=== PATIENT | male | born 1940 | race Caucasian/White ===

== ENCOUNTER 2018-02-04 21:07 | Inpatient (IN) | payer MEDICARE, OTHER ==
[2018-02-04] MEDS ORDERED: METOCLOPRAMIDE HCL INJ 10 MG/2 ML VIAL IV ONE (21:40)
[2018-02-04] MEDS ORDERED: SODIUM CHLORIDE 0.9% 1000ML 1,000 ML IVS ONE (21:42)
--- NOTE | 2018-02-04 21:48 | ED.PDOC ---
History of Present Illness - General Chief Complaint: Abdominal Pain Stated Complaint: left lower abd pain, diarrhea, fever Time Seen by Provider: 02/04/18 21:39 Information Source: patient, Vital Signs reviewed, family Exam Limitations: no limitations - History of Present Illness Initial Comments: Mister Yoder presents to the ED with complaint of abdominal pain in the left low er quadrant that has been present for the past 10 hours. The patient states that this is sharp in nature and getting progressively worse. The patient notes that he had a loose bowel movement with this issue but denies vomiting or nausea. The patient also notes a 103 fever at home with this issue. The patient denies urinary issues at this time as well as sick contacts. The patient does endorse a history of diverticulitis in the past. Abdominal Pain Onset Location: LLQ Pain Radiation: no radiation Quality: moderate Timing/Duration: 7-24 hours Improving Factors: rest Worsening Factors: other - movement/palpation Review of Systems - Review of Systems Review of Systems: 02/04/18 21:48 A 10 PT ROS WAS DONE AT THE PATIENT'S BEDSIDE AND IS NEGATIVE EXCEPT NOTED IN THE PATIENT'S HPI. Past Medical History (General) - Patient Medical History Hx Seizures: No Hx Stroke: No Hx Dementia: No Hx Asthma: No Hx of COPD: No Hx Cardiac Disorders: No Hx Congestive Heart Failure: No Hx Pacemaker: No Hx Hypertension: Yes Hx Thyroid Disease: No Hx Diabetes: No Hx Gastroesophageal Reflux: No Hx Renal Disease: No Hx Cancer: Yes - prostate Hx of HIV: No Hx Hepatitis C: No Hx MRSA: No Surgical History: other - Vaccination History Hx Tetanus, Diphtheria Vaccination: No Hx Influenza Vaccination: Yes Hx Pneumococcal Vaccination: Yes Immunizations Up to Date: Yes - Social History Hx Tobacco Use: No Hx Alcohol Use: Yes Family Medical History - Family History Mother Family History: Unknown Physical Exam - Physical Exam General Appearance: Comfortable, Well Groomed, Well Hydrated, Well Nourished Eyes, Ears, Nose, Throat Exam: PERRL/EOMI, normal ENT inspection Neck: supple Respiratory: lungs clear Cardiovascular/Chest: regular rate, rhythm Gastrointestinal/Abdominal: normal bowel sounds, soft, rebound - LLQ, tenderness - LLQ Back Exam: normal inspection, no CVA tenderness Extremity: normal range of motion Neurologic: alert, normal mood/affect, oriented x 3 Skin Exam: normal color Progress - Progress Progress: 02/04/18 21:50 ABDOMINAL PAIN, APPENDICITIS, BOWEL OBSTRUCTION, BOWEL PERFORATION, RENAL STONE, URETERAL STONE, BILIARY COLIC, CHOLECYSTITIS, HEPATITIS, PANCREATITIS, IRRITABLE BOWEL SYNDROME, URINARY TRACT INFECTION, PYELONEPHRITIS, GASTROESOPHAGEAL REFLUX DISEASE, GASTROENTERITIS, PEPTIC ULCER DISEASE, GASTRITIS, ABDOMINAL AORTIC ANEURYSM, ISCHEMIC BOWEL, DIVERTICULITIS, ACUTE MYOCARDIAL INFARCTION, CONSTIPATION, INCARCERATED HERNIA, DIARRHEA. PT PRESENTATION APPEARS TO BE AN ACUTE EXACERBATION OF ABD PAIN. APPENDECITIS UNLIKELY DUE TO PRESENTATION WELL LOCATION OF PAIN. PANCREATITIS ALSO ON THE DDX WHICH WE WILL EVALUATE VIA LIPASE.AMI/DKA UNLIKELY DUE TO HOW THIS PATIENT PRESENTED AND NO COMPLAINTS OF SIGNS/SYMPTOMS OF THESE ISSUES. COLITIS ALSO A CONSIDERATION DUE TO PAIN LOCATION AND PRESENTATION WHICH WE WILL EVALUATE VIA CT SCAN. RENAL/URETERAL STONES ARE ALSO ON THE DIFFERENTIAL DUE TO PRESENTATION WELL LOCATION OF PAIN ON PRESENTATION. PT WILL RECEIVE BASICS LABS AND CT ABD/PEL TO EVALUATE FOR FOREMENTIONED INTRAABDOMINAL PATHOLOGY. 02/04/18 22:21 THE PATIENT IS RESTING COMFORTABLY AT THIS TIME AND TALKING WITH HIS . I WILL CONTINUE TO MONITOR HIM FOR CLINICAL CHANGES. 02/04/18 23:37 THE PATIENT IS DOING WELL AT THIS TIME. WE HAVE DISCUSS THE PATIENT'S LAB AND RADIOLOGICAL RESULTS AT THIS TIME. THE PATIENT IS ADVISED THAT HIS CT AP IS NOTED TO SHOW COLITIS AT THIS TIME WHICH APPEARS INFECTIOUS IN NATURE. THE PATIENT IS ADVISED THAT HE REQUIRES ADMISSION TO THE HOSPITALIST SERVICE FOR THIS ISSUE. THE PATIENT IS IN AGREEMENT W/ THIS PLAN. - EKG/XRAY/CT Comments: EKG- SB, RATE 54BPM, AXIS-NL, NONSPECIFIC ST-CHANGES ARE NOTED. - Consult/PCP Time Called: 23:30 Consult/PCP: Anca JENKINS PIANO BUILDER Consult Reason/Comments: ACCEPTS THE ADMISSION AT THIS TIME. STATES HE HAS DISCUSSED W/ GEN SURGERY. Departure - Departure Clinical Impression: Acute colitis Abdominal pain Qualifiers: Abdominal location: left lower quadrant Qualified Code(s): R10.32 - Left lower quadrant pain Disposition: Admit Patient Decision To Admit - Decistion To Admit Decision to Admit Reason: Admit from ER Decision to Admit Date: 02/04/18 Decision to Admit Time: 23:37
--- NOTE | 2018-02-04 23:03 | CT ---
CLINICAL HISTORY: LLQ PAIN, FEVER COMPARISON: None. TECHNIQUE: CT ABDOMEN WITH IV CONTRAST on 02/04/2018 10:11 PM [employer] This exam was performed according to our departmental dose-optimization program, which includes automated exposure control, adjustment of the mA and/or kV according to patient size and/or use of iterative reconstruction technique. FINDINGS: There is minimal bibasilar atelectasis. The heart is mildly enlarged. Abdomen: There is a tiny hypodense lesion in the right hepatic lobe measuring 1 cm. This is too small to characterize. There is no biliary dilatation. Gallbladder is normal in appearance. There is a small hiatal hernia. The pancreas and spleen are normal in appearance. Adrenal glands are normal. Kidneys are mildly atrophic. Lower pole left renal cysts are present. Abdominal aorta is normal in course and caliber without aneurysm. There is no free air. There is no retroperitoneal adenopathy.Abdominal aorta is moderately calcified without aneurysm. Pelvis: There is moderate to severe diverticulosis of the left colon. There is long segment thickening of much of the descending colon with mild surrounding inflammation. There is mild thickening of the urinary bladder. There is no free fluid. Prostatectomy was performed. Appendix is normal. Skeleton: There are no acute osseous findings. No suspicious bony lesions. IMPRESSION: Long segment infectious or inflammatory colitis involving the descending colon. Electronically signed by: Farhat Reeves MD 02/04/2018 11:02 PM [employer]
--- NOTE | 2018-02-04 23:12 | CT ---
EXAM: CT CHEST WITH IV CONTRAST HISTORY: COUGH,FEVER COMPARISON: None Available TECHNIQUE: Multiple helical axial tomographic images were obtained of the chest following administration of intravenous contrast. Coronal and sagittal reformatted images were obtained. This exam was performed according to our departmental dose-optimization program, which includes automated exposure control, adjustment of the mA and/or kV according to patient size and/or use of iterative reconstruction technique. FINDINGS: Thyroid gland: unremarkable. Axilla: unremarkable. Pulmonary arteries: Central pulmonary arteries appear grossly patent. Aorta: Aortic atherosclerosis is present. No evidence of aortic dissection or aneurysm. Mediastinum: Small hiatal hernia is noted. No adenopathy. Heart: Heart is normal in size. Coronary artery calcifications are present. Lungs/airways: No consolidation. Airways are patent. Mild subsegmental atelectasis in both lower lobes noted. A few small calcified granulomas are present bilaterally. Pleural spaces: No significant pleural effusion. No pneumothorax. Osseous: Left humeral head bone anchors noted. Soft tissues: Unremarkable. Visualized abdomen: Unremarkable. IMPRESSION: No acute intrathoracic abnormality. Electronically signed by: Tung Mccallum MD 02/04/2018 11:11 PM [employer] TEACHER
[2018-02-04] MEDS ORDERED: cefTRIAXone SODIUM 1 GM VIAL IM ONE (23:22)
[2018-02-04] MEDS ORDERED: metroNIDAZOLE IV PREMIX 500MG 500 MG in PREMIX BAG 1 BAG IVPB ONE (23:22)
[2018-02-04] MEDS ORDERED: LIDOCAINE 1% 10 ML VIAL INJ ONE (23:45)
[2018-02-04] MEDS ORDERED: metroNIDAZOLE IV PREMIX 500MG 100 ML IVPB ONE (23:45)
[2018-02-05] MEDS ORDERED: ONDANSETRON INJ 4 MG/2 ML VIAL IV PRN (00:29)
[2018-02-05] MEDS ORDERED: SODIUM CHLORIDE 0.9% (FLUSH) 10 ML SYG IV PRN (00:29)
[2018-02-05] MEDS ORDERED: MORPHINE SULFATE INJ 10 MG/ML VIAL IV PRN (00:29)
--- NOTE | 2018-02-05 00:44 | HP ---
SUPERVISING PHYSICIAN: Zeke Hamilton MD CHIEF COMPLAINT: Left lower abdominal pain with diarrhea and fever. HISTORY OF PRESENT ILLNESS: Mr. Yoder is a 77 year-old male patient who presented to the Emergency Room last night with complaints of abdominal pain associated to the left lower quadrant. He notes that early in the day he was having some issues with constipation and had drank some prune juice after which he started having some diarrhea and then slowly progressed to the abdominal pain to such a painful nature that he presented to the Emergency Room for evaluation. He denied any nausea or vomiting but noted he did have 101 to 103 fever at home and took Tylenol prior to admission to the Emergency Room. He denied any changes in his bowel habits. He had a colonoscopy in the last few years, he reports this has been without any acute pathological findings. He does have a history of diverticulosis and apparently has had some diverticulitis in the past. Initially in the Emergency Room, laboratory showed he had a leukocytosis of 13,000 with hemoglobin 6 and hematocrit 35.0, platelet count showing 268,000 with differential indicating a left shift. Chemistries showed a mild hyponatremia at 132 on sodium with potassium 3.8. BUN 24, creatinine 1.21. Lactic acid 1.5, calcium 8.3, magnesium 1.6. Liver functions all within normal limits. Troponin less than 0.02 and C-reactive protein elevated at 2.2. Lipase was normal at 21. Sed rate was pending. Urinalysis showed a small amount of bilirubin, otherwise within normal limits. Microbiology: Blood cultures pending. Radiology: He had a CT of the chest and abdomen with contrast and per radiology interpretation of the abdomen, there was note of a long segment of infectious and inflammatory colitis involving the colon. CT of the chest showed no intrathoracic abnormalities per radiology interpretation. His pain on admission was reportedly 8/10. He was given morphine for pain control and started on IV fluids as well as antibiotics to initially include Rocephin and Flagyl. Given the patient's advanced age and findings on CT indicate a possible infective colitis. The patient is now going to be admitted for continuation of treatment and evaluation. He is admitted in stable condition. PAST MEDICAL HISTORY: 1. Hypertension. 2. History of prostate cancer with prostatectomy in 2000. PAST SURGICAL HISTORY: 1. Prostatectomy in 2000. 2. Left shoulder scope. 3. Colonoscopy in 2015 with reportedly no acute findings. CURRENT MEDICATIONS: 1. Clonidine patch 0.3 mg every 7 days. 2. Probiotic 1 daily. 3. Visceral tablet 2000 mg daily. 4. Vitamin D3 15,000 units daily. 5. Valacyclovir 1 gram p.o. as needed. 6. Multiple vitamin 1 tablet daily. 7. Zolpidem Tartrate 2.5 mg as needed. 8. Lipitor 20 mg at bedtime. 9. Pantoprazole 40 mg daily. 10. Aspirin low-dose 81 mg at bedtime. 11. Hydrochlorothiazide 25 mg daily. 12. Losartan potassium 100 mg daily. ALLERGIES: No known drug allergies. FAMILY HISTORY: Father at early age with no significant history known. Mother at age 90 from breast cancer and also had a history of dementia. He has 2 younger siblings, one has dementia and one has hypertension. He has one child, a daughter, who is healthy. 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 He is and lives in [place], currently visiting family over there holidays. He has not smoked in 40 years. He notes he drinks a glass of wine on rare occasions but does not use any illicit drugs. REVIEW OF SYSTEMS: CONSTITUTIONAL: Positive for fever with a subjective fever up to 103, general malaise, chills but no unintentional weight changes. HEENT: Negative for earache, sore throat, nasal congestion, headaches. RESPIRATORY: Negative for any shortness of breath, exertional dyspnea, orthopnea or wheezing or coughing. CARDIOVASCULAR: Negative for chest pain, palpitations or syncopal episodes. Positive for difficult to control hypertension. Negative for peripheral edema. GASTROINTESTINAL: Positive for left quadrant abdominal pain. Negative for any hematochezia or bright red blood. Positive for diarrhea and constipation as noted in history of present illness. GENITOURINARY: History of prostate cancer but negative for dysuria, hematuria, polyuria. NEUROLOGIC: Negative for headaches, seizure activities or syncopal episodes or neurological deficits. PHYSICAL EXAMINATION: VITAL SIGNS: Temperature 98.4, pulse 60, blood pressure 107/50, respirations 18, saturation 97% on room air. At time of admission to the hospital, the patient was showing a heart rate of 58, afebrile at 98.6 with blood pressure 164/54, saturation 96% on room air. Admission weight 92.4 kg. GENERAL: The patient appears to be comfortable in no acute distress, well- nourished, well-hydrated. HEENT: Tympanic membranes clear bilaterally. Oropharynx pink and moist without any lesions. NECK: Supple, non-tender with full range of motion. No jugular venous distention noted. CHEST: Lungs clear to auscultation without any rhonchi, rales, or wheezes. CARDIOVASCULAR: Regular rate and rhythm without appreciable murmurs, rubs, or gallops. ABDOMEN: Soft, nondistended with tenderness to palpation to the left upper and lower quadrant with some rebound tenderness. No peritoneal signs. Bowel sounds are positive. EXTREMITIES: No cyanosis, clubbing, or edema. NEUROLOGIC: Cranial nerves II through XII are grossly intact. Facial features are symmetrical. Extraocular movements within normal limits. There is no noted nystagmus. RECTAL: Exam deferred. LABORATORY: White count showing leukocytosis of 13,300 with hemoglobin 11.6 and hematocrit 35.0. Platelet count 258,000 with a left shift. Chemistries indicated hyponatremia with sodium 132, potassium 3.8, anion gap 11.8 with BUN 24, creatinine 1.21, magnesium low at 1.6, calcium 8.3. Lactic acid 1.5, liver functions showed to be within normal limits. C-reactive protein high at 2.2. Sed rate pending. Troponin less than 0.02l, lipase 21. Urinalysis shows small amount of bilirubin, otherwise within normal limits. MICROBIOLOGY: Blood cultures are pending. Stool culture pending. Leukoferon on stools pending. Occult blood on stools pending. C difficult pending. RADIOLOGY: CT of the chest per radiology interpretation was without any acute findings. CT of abdominal with contrast per radiology interpretation showed a long segment infectious or inflammatory colitis involving the descending colon. ASSESSMENT: 1. Acute abdominal pain with probable infective colitis with CT studies indicating inflammatory changes, colitis involving the majority of the descending colon with patient having a history of diverticulosis. 2. Hypertension. 3. History of prostate cancer with a previous prostatectomy in 2000. 4. Electrolyte imbalance to include hyponatremia, probably due to chronic Hydrochlorothiazide usage and also a mild hypomagnesemia probably due to acute diarrhea. 5. Normocytic normochromic anemia with current acute findings of colitis, awaiting occult blood. 6. Leukocytosis secondary to descending colitis with a left shift but no bands. 7. Mild dehydration secondary to recent diarrhea. PLAN: The patient is going to be admitted to the medical/surgical floor for further treatment of acute colitis. He will remain n.p.o. except for oral medications. He will be started on Flagyl and Levaquin antibiotic coverage. He will need prophylaxis as per protocol. We will go ahead and replace magnesium with 2 grams IV and recheck a magnesium in the morning. Will resume his medications as appropriate and probably hold his Hydrochlorothiazide until he can start eating. Until then, we will provide fluid replacement with normal saline with 20 of potassium at 125 an hour. We will closely monitor his I & O's. We will provide him with pain management with morphine as needed and antiemetics. Will anticipate his length of stay to be at least 2 to [address] Kinsey prior to admission. He will see the patient in the morning and will also plan to repeat labs, CBC, BMP, magnesium and an abdominal series. Until the patient can be transitioned to outpatient management, we will continue to monitor and treat as needed. #[id number] [facility]
[2018-02-05] MEDS ORDERED: ZOLPIDEM TARTRATE 5 MG TAB PO PRN (01:30)
[2018-02-05] MEDS: levoFLOXacin 750MG IV 750 MG in PREMIX BAG 1 BAG IVPB SCH (02:08)
[2018-02-05] MEDS: IV SET AND CAP CHANGE INJ INJ SCH (02:09)
[2018-02-05] MEDS: KCL 20 MEQ/NS 1,000 ML IVS PRN ×2 (02:09→14:03)
[2018-02-05] MEDS ORDERED: MAGNESIUM SULFATE PREMIX 2GM 2 GM in PREMIX BAG 1 BAG IVPB ONE (02:10)
[2018-02-05] MEDS ORDERED: MAGNESIUM SULFATE PREMIX 2GM 50 ML IVPB ONE (03:17)
[2018-02-05] MEDS: PANTOPRAZOLE SODIUM IV 40 MG VIAL IV SCH (05:49)
[2018-02-05] MEDS: LOSARTAN POTASSIUM 100 MG TAB PO SCH (05:49)
--- NOTE | 2018-02-05 07:19 | RAD ---
EXAM: Abdomen Flat Upright CLINICAL HISTORY: acute colitis COMPARISON STUDY: CT abdomen pelvis February 04, 2018 TECHNICAL: Flat and upright images of the abdomen FINDINGS: The small bowel loops are dilated with air-fluid levels. There are some colonic gas. There is no free air. Prostatectomy clips are seen in the pelvis. There are multiple sclerotic areas in the pelvis and the left L1 pedicle. IMPRESSION: 1. Dilated loops of small bowel with air-fluid levels. Colitis suggestive ileus. An early or partial small bowel obstruction is possible. 2. 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 Electronically signed by: Danilo Ortiz MD 02/05/2018 7:18 AM [facility]
[2018-02-05] MEDS ORDERED: metroNIDAZOLE IV PREMIX 500MG 100 ML IVPB ONE ×3 (08:55→20:25)
[2018-02-05] MEDS: metroNIDAZOLE IV PREMIX 500MG 500 MG in PREMIX BAG 1 BAG IVPB SCH ×3 (08:59→23:32)
--- NOTE | 2018-02-05 13:50 | CONS ---
DATE OF CONSULTATION: 02/05/18 REFERRING PHYSICIAN: Hospital service HISTORY OF PRESENT ILLNESS: The patient is a 77-year-old male who was admitted last night through the Emergency Room with left lower quadrant abdominal pain, fever and a history of diarrhea. This morning, the patient is relatively comfortable. He says he feels better and has a T-max overnight of 99.4. He has not had any stool since he was admitted. The patient states he had traveled here from [place] and arriving Thursday. He has several grandchildren in the home where he is staying that have had viral illnesses, but no one had like symptoms with him. He is status post two years a colonoscopy. He is known to have diverticular disease, but is uncertain whether he has had diverticulitis in the past. He denies blood per rectum. PAST MEDICAL HISTORY: 1. Hypertension. He was recently hospitalized for that. 2. History of prostate cancer with a prostatectomy. Interestingly, he has had bony islands especially in his pelvic area since at least 2012 that appear to not be bony metastasis and he has a stable PSA. PAST SURGICAL HISTORY: 1. Left shoulder surgery. 2. Prostatectomy. CURRENT MEDICATIONS: 1. Clonidine. 2. Probiotic. 3. Valacyclovir. 4. Zolpidem. 5. Lipitor. 6. Pantoprazole. 7. Low dose aspirin. 8. Hydrochlorothiazide. 9. Losartan. 10. Potassium. ALLERGIES: NO KNOWN DRUG ALLERGIES. FAMILY HISTORY: Positive for breast cancer, dementia and hypertension. 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 He is and lives in [place]. He has not smoked in 40 years. He drinks a glass of wine rarely. He has never used illicit drugs. REVIEW OF SYSTEMS: Unremarkable except as in the history of present illness. He specifically denies chest pain, shortness of breath, coughing or wheezing. He denies problems with voiding or hematuria. He denies headaches, muscle aches. PHYSICAL EXAMINATION: GENERAL: The patient is awake, alert, cooperative, in no acute distress. VITAL SIGNS: The patient is currently afebrile, stable vital signs. HEENT: Sclerae nonicteric. Mucous membranes moist. NECK: Without adenopathy. CHEST: Equal bilateral motion and is clear anteriorly. HEART: Regular rate and rhythm. ABDOMEN: Soft. It is tender in the left lower quadrant without mass. There is some referred tenderness. RECTAL: Deferred. EXTREMITIES: Without cyanosis, clubbing or edema. LABORATORY: White blood cell count 12.5, down from 13.3. Hemoglobin down to 11.2 from 11.6. Platelet count 253,000. Neutrophils are down from 84 to 81. ESR was 35. C-reactive protein 2.2. Potassium 3.6, creatinine 1.18. CT scan was reviewed with Dr. Badillo. He feels it is more consistent with diverticulitis than an inflammatory colitis or infectious colitis. ASSESSMENT: 1. Probably acute diverticulitis. 2. History of prostate cancer. 3. Hypertension including recent admission for problems with his hypertension. PLAN: He is covered with appropriate antibiotics. We will continue these and continue NPO at least until tomorrow morning. We will reevaluate him at that point. He will need some catharsis from above for a large amount of stool identified on the CT scan. #[id number] [facility]
--- NOTE | 2018-02-05 17:25 | PN ---
DATE: 02/05/18 SUPERVISING PHYSICIAN: Zeke Hamilton M.D. SUBJECTIVE: The patient notes that he feels a little bit better but continues to have pain on the left side but not quite as severe as it was at admission. He has not yet had any bowel movements and he has remained afebrile overnight. He has had no nausea or vomiting. OBJECTIVE: VITAL SIGNS: T max 99.5, pulse 60, blood pressure 122/58, respirations 16, satting 93% on room air. I's and O's are well balanced. No bowel movements yet and weight is 92.4 kg. GENERAL: The patient is resting comfortably. Appears to be in no acute distress. He is alert. CHEST: Lungs are clear to auscultation. HEART: Regular rate and rhythm. ABDOMEN: Soft with continued tenderness to palpation to the left upper and lower quadrants. No rebound tenderness. No point tenderness. EXTREMITIES: Without any clubbing or cyanosis. NEUROLOGIC: He is alert and oriented times three. LABORATORY: White count has come down slightly to 12,500 with hemoglobin 11.2, hematocrit 33.7, platelet count 253,000. Differential shows a continued left shift. Sed rate was 35. Chemistries show normal electrolytes now with sodium 135, potassium 3.6, BUN 23, creatinine 1.18, calcium 8.1, magnesium now is up to 2.3. MICROBIOLOGY: Blood cultures remain negative. RADIOLOGY: Repeat abdominal x-ray per radiology interpretation shows dilated loops of small bowel with air-fluid levels. Colitis suggestive ileus. An early partial small bowel obstruction possible. Please see that detail for full reports. Also is noted multiple sclerotic foci from the pelvis and left L1 pedicle which could be blastic metastasis from prostate cancer. ASSESSMENT: 1. Acute abdominal pain, probably acute diverticulitis showing good response to antibiotics to include Levaquin and Flagyl and bowel rest. 2. Electrolyte imbalance, resolved after IV fluids. 3. Hypertension showing to be stable. 4. History of prostate cancer with a previous prostatectomy in 2000. 5. Electrolyte imbalance to include hypomagnesemia, resolved back to baseline after IV replacement. 6. Normocytic normochromic anemia showing to be stable. 7. Leukocytosis secondary to probable acute diverticulitis but showing improvement with therapy. 8. Mild dehydration secondary to diarrhea now improved with fluids. PLAN: Dr. Kinsey has been consulted and has seen the patient today. He agrees with current treatment plan of Levaquin and Flagyl, and keeping bowel rest until at least tomorrow. Will plan to repeat an abdomen and labs in the morning. He will be continued on DVT prophylaxis. He will be provided pain management and antiemetics as needed. Will anticipate at least another 24 to 48 hours of hospitalization while the patient clinically improves. Until he can transition to outpatient management will continue to monitor and treat as needed. #[id number] [facility]
[2018-02-05] MEDS: ASPIRIN (ENTERIC COATED) 81 MG TAB PO SCH (21:24)
[2018-02-05] MEDS: ENOXAPARIN SODIUM 40 MG/0.4 ML SYG SUBCU SCH (21:24)
[2018-02-05] MEDS: ATORVASTATIN 20 MG TAB PO SCH (21:24)
[2018-02-06] MEDS: KCL 20 MEQ/NS 1,000 ML IVS PRN ×2 (01:21→22:47)
[2018-02-06] MEDS: levoFLOXacin 750MG IV 750 MG in PREMIX BAG 1 BAG IVPB SCH (01:35)
[2018-02-06] MEDS: LOSARTAN POTASSIUM 100 MG TAB PO SCH (05:54)
[2018-02-06] MEDS: PANTOPRAZOLE SODIUM IV 40 MG VIAL IV SCH (05:54)
--- NOTE | 2018-02-06 08:14 | RAD ---
PROCEDURE: Abdomen Flat Upright Clinical History: diverticulitis Indication: Same as above Comparison: 02/05/2018 Technique: Three views of the abdomen and pelvis were done. Findings: There is no gross evidence of free air in the abdomen or the pelvis . There is improving caliber of the dilated small bowel loops, suggestive of improving small bowel ileus, with residual few air-fluid levels seen in the small bowel loops. Normal caliber large bowel loops are again noted Surgical pat are again seen in the pelvic region. Impression: There is improving caliber of the dilated small bowel loops, suggestive of improving small bowel ileus, with residual few air-fluid levels seen in the small bowel loops. Location of Interpretation: [id number] Electronically signed by: Zac Groves MD 02/06/2018 8:13 AM [facility] Workstation: [id number]
[2018-02-06] MEDS ORDERED: metroNIDAZOLE IV PREMIX 500MG 100 ML IVPB ONE ×3 (09:01→19:38)
[2018-02-06] MEDS: metroNIDAZOLE IV PREMIX 500MG 500 MG in PREMIX BAG 1 BAG IVPB SCH ×3 (09:09→23:35)
[2018-02-06] MEDS ORDERED: MAGNESIUM HYDROXIDE 30 ML UD PO ONE (12:18)
[2018-02-06] MEDS ORDERED: BISACODYL SUPPOSITORY 10 MG PR ONE (12:18)
[2018-02-06] MEDS: POLYETHYLENE GLYCOL 3350 17 GM PCKT PO SCH (12:51)
[2018-02-06] MEDS ORDERED: SODIUM CHLORIDE 0.65% NASAL SPRAY 45 ML BTTL BNAS PRN (15:31)
[2018-02-06] MEDS: ENOXAPARIN SODIUM 40 MG/0.4 ML SYG SUBCU SCH (20:22)
[2018-02-06] MEDS: ASPIRIN (ENTERIC COATED) 81 MG TAB PO SCH (20:22)
[2018-02-06] MEDS: ATORVASTATIN 20 MG TAB PO SCH (20:22)
[2018-02-06] MEDS: TEMAZEPAM 15 MG CAP PO PRN (21:17)
--- NOTE | 2018-02-06 21:42 | PN ---
DATE: 02/06/18 SUPERVISING PHYSICIAN: Zeke Hamilton M.D. SUBJECTIVE: The patient feels a little bit better today. He said he is not quite as tender on the left side. He noted that he had not had a bowel movement and he has had no nausea. He has been tolerating ice chips and he has been trying to ambulate. He has remained afebrile. OBJECTIVE: VITAL SIGNS: temperature 97.7, pulse 54, blood pressure 146/56, respirations 18, satting 98% on room air. I's and O's show a positive balance of 1550 with 1300 in, 1650 out. Weight is 92.9 kg. GENERAL: The patient is resting comfortably and in no acute distress. He is alert. CHEST: Lungs are clear to auscultation. HEART: Regular rate and rhythm. ABDOMEN: Soft with continued tenderness to palpation in the left upper and lower quadrants with no rebound tenderness today. No point tenderness. EXTREMITIES: Without any clubbing. NEUROLOGIC: He is alert and oriented times three. LABORATORY: White count today is normalized to 9.9 with hemoglobin 11.2, hematocrit 33.7, platelet count at 240,000. Differential shows a resolving left shift. Chemistries show normal electrolytes with BUN 21, creatinine 1.09. C reactive protein is elevated up to 11.4 today. Sed rate is now down to 25. He had a stool occult blood that was negative. MICROBIOLOGY: Stool leukocytes were positive. Stool culture is pending. Clostridium Difficile toxin A and B were negative. Blood cultures remain negative. RADIOLOGY: Repeat abdominal series this morning per radiology interpretation shows improving caliber of the dilated small bowel loops suggestive of improving small bowel ileus with residual few air-fluid levels seen in small bowel loops. ASSESSMENT: 1. Acute abdominal pain on admission probably due to acute diverticulitis showing some improvement and response to antibiotics to include Levaquin and Flagyl and bowel rest. 2. Electrolyte imbalance that included hypomagnesemia, resolved with IV replacement. 3. Hypertension showing some episodes of uncontrolled hypertension requiring p.r.n. Hydralazine with the patient having a history of erratic blood pressures. 4. History of prostate cancer with a previous prostatectomy in 2000. 5. Normocytic normochromic anemia showing to be stable. 6. Leukocytosis probably due to acute diverticulitis, improving with therapy. 8. Mild dehydration, resolved with fluids. PLAN: I have discussed the case with Dr. Kinsey and he wants to give the completion of suppository Dulcolax today with some MiraLAX and Milk of Magnesia, and start him on clear liquids. Will plan to repeat labs in the morning and hold off on x-rays as he is showing improvement. The patient is encouraged to ambulate, which he has been doing well. Until the patient can transition to outpatient management will continue to monitor and treat as needed. #[id number] [facility]
[2018-02-07] MEDS: levoFLOXacin 750MG IV 750 MG in PREMIX BAG 1 BAG IVPB SCH (01:32)
[2018-02-07] MEDS ORDERED: cloNIDine PATCH 0.1MG/24HR 0.1 MG PATCH TD ONE (05:10)
[2018-02-07] MEDS ORDERED: cloNIDine PATCH 0.2 MG/24HR 0.2 MG PATCH TD ONE (05:10)
[2018-02-07] MEDS ORDERED: metroNIDAZOLE IV PREMIX 500MG 0 ML IVPB ONE (05:11)
[2018-02-07] MEDS: LOSARTAN POTASSIUM 100 MG TAB PO SCH (06:05)
[2018-02-07] MEDS: PANTOPRAZOLE SODIUM IV 40 MG VIAL IV SCH (06:05)
[2018-02-07] MEDS ORDERED: metroNIDAZOLE IV PREMIX 500MG 100 ML IVPB ONE (07:55)
[2018-02-07] MEDS ORDERED: REMOVE OLD PATCH TOP SCH (08:00)
[2018-02-07] MEDS ORDERED: cloNIDine PATCH 0.2 MG/24HR 0.2 MG PATCH TD SCH (08:00)
[2018-02-07] MEDS ORDERED: cloNIDine PATCH 0.1MG/24HR 0.1 MG PATCH TD SCH (08:00)
[2018-02-07] MEDS: metroNIDAZOLE IV PREMIX 500MG 500 MG in PREMIX BAG 1 BAG IVPB SCH (08:42)
[2018-02-07] MEDS: POLYETHYLENE GLYCOL 3350 17 GM PCKT PO SCH (09:19)
[2018-02-07] MEDS ORDERED: MAGNESIUM HYDROXIDE 30 ML UD PO ONE (11:10)
[2018-02-07] MEDS: metroNIDAZOLE 500 MG TAB PO SCH (16:47)
--- NOTE | 2018-02-07 18:27 | PN ---
DATE: 02/07/18 SUPERVISING PHYSICIAN: Zeke Hamilton M.D. SUBJECTIVE: The patient continues to show clinical improvement. He is not as tender today in the abdomen. He has had 1 bowel movement after Dulcolax suppository. He has been tolerating a clear liquid diet. He has been afebrile. 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 OBJECTIVE: VITAL SIGNS: Temperature 98.7, pulse 54, blood pressure 148/67, respirations 18, satting 95% on room air. Weight is 94.3 kg. GENERAL: The patient is resting comfortably. He is alert. CHEST: Clear to auscultation. HEART: Regular rate and rhythm. ABDOMEN: Soft with some tenderness noted to deep palpation to the left side but notably decreased from previous days. EXTREMITIES: Without any clubbing, cyanosis or edema. NEUROLOGIC: He is alert and oriented times three. LABORATORY: White count is 7,400. Hemoglobin and hematocrit are stable at 11.2 and 33.6, platelet count 239,000. Differential now shows to be without a left shift. Chemistries show normal electrolytes with potassium 3.7, BUN 15, creatinine 0.99, glucose 95. He had 1 stool occult blood that was negative. MICROBIOLOGY: Stool culture is pending. Clostridium Difficile A and B was negative. Lactoferrin was positive. Blood cultures remain negative at 48 hours. ASSESSMENT: 1. Acute abdominal pain secondary to acute diverticulitis, improving with antibiotics including Levaquin and Flagyl, and bowel rest. Able to transition to clear liquids. 2. Electrolyte imbalance with hypomagnesemia now at baseline after replacement. 3. Hypertension with episodes of uncontrolled hypertension requiring p.r.n. Hydralazine with the patient having a history of erratic blood pressures. 4. History of prostate cancer with a previous prostatectomy in 2000. 5. Normocytic normochromic anemia showing to be stable. 6. Leukocytosis probably due to diverticulitis, but now back to baseline levels with antibiotic treatment. PLAN: After discussing plan of care today with Dr. Kinsey we are going to decrease the patient's fluids to 80 an hour. Will give additional dose of Milk of Magnesia. Will continue with clear liquids and transition him from parenteral antibiotics to p.o. antibiotics with both Levaquin and Flagyl. Will anticipate that he will be able to be discharged tomorrow if he continues to have bowel movements today. Once discharged he will need close followup with Dr. Kinsey who has stated that he could followup with him. He just needs to call him next week if he is still in town before he goes back to [place]. His diet will be a mechanical soft diet as tolerated and he will need continued coverage with antibiotics with Flagyl and Levaquin. Until he can transition to outpatient management will continue to monitor and treat as needed. #[id number] [facility]
[2018-02-07] MEDS: ASPIRIN (ENTERIC COATED) 81 MG TAB PO SCH (20:17)
[2018-02-07] MEDS: BIFIDOBACTERIUM INFANTIS 4 MG CAP PO SCH (20:17)
[2018-02-07] MEDS: ATORVASTATIN 20 MG TAB PO SCH (20:17)
[2018-02-07] MEDS: ENOXAPARIN SODIUM 40 MG/0.4 ML SYG SUBCU SCH (20:17)
[2018-02-07] MEDS: TEMAZEPAM 15 MG CAP PO PRN (22:25)
[2018-02-08] MEDS: KCL 20 MEQ/NS 1,000 ML IVS PRN (00:13)
[2018-02-08] MEDS: IV SET AND CAP CHANGE INJ INJ SCH (00:18)
[2018-02-08] MEDS: PANTOPRAZOLE SODIUM IV 40 MG VIAL IV SCH (06:09)
[2018-02-08] MEDS: LOSARTAN POTASSIUM 100 MG TAB PO SCH (06:09)
[2018-02-08 06:35] VITALS: TEMP 98.3
[2018-02-08] MEDS: metroNIDAZOLE 500 MG TAB PO SCH ×2 (09:00)
[2018-02-08] MEDS ORDERED: levoFLOXacin 750MG IV 750 MG in PREMIX BAG 1 BAG IVPB SCH (09:00)
[2018-02-08] MEDS ORDERED: hydroCHLOROthiazide 25 MG TAB PO SCH (09:08)
[2018-02-08] MEDS ORDERED: PROBIOTIC PRODUCT PO SCH (09:15)
[2018-02-08] MEDS ORDERED: levoFLOXacin 500 MG TAB ONE (09:27)
[2018-02-08] MEDS ORDERED: levoFLOXacin 500 MG TAB PO ONE (09:44)
[2018-02-08] MEDS: POLYETHYLENE GLYCOL 3350 17 GM PCKT PO SCH (09:45)
[2018-02-08] MEDS: BIFIDOBACTERIUM INFANTIS 4 MG CAP PO SCH (09:45)
[2018-02-08 10:11] VITALS: BP 161/68; O2SAT 96
[2018-02-08] MEDS ORDERED: MAGNESIUM HYDROXIDE 30 ML UD PO ONE (10:47)
--- NOTE | 2018-02-08 20:02 | DS ---
SUPERVISING PHYSICIAN: Zeke Hamilton M.D. DISCHARGE DIAGNOSIS: 1. Acute abdominal pain secondary to acute diverticulitis, improving with antibiotics including Levaquin and Flagyl, and bowel rest. Has transitioned to full liquids and tolerating without problems. 2. Electrolyte imbalance with hypomagnesemia now at baseline after replacement. 3. Hypertension with episodes of uncontrolled hypertension requiring p.r.n. Hydralazine with the patient having a history of erratic blood pressures. Will need to followup with his primary care physician in [place]. 4. History of prostate cancer with a previous prostatectomy in 2000. 5. Normocytic normochromic anemia showing to be stable. 6. Leukocytosis probably due to diverticulitis, but now back to baseline levels with antibiotic treatment. HISTORY OF PRESENT ILLNESS: This is a 77 year-old male patient who presented to the Emergency Room with complaints of abdominal pain mostly in the left lower quadrant. He has had some issues with constipation and tried some prune juice. He did have just a little bit of diarrhea afterwards and then the abdominal pain progressed to such a painful nature that he had to come to the Emergency Room. There was no nausea or vomiting but he did have 101 to 103 fever at home. He took Tylenol prior to his admission to the Emergency Room. He denied any real changes in his bowel habits. He has had a colonoscopy in the past few years and there was nothing acutely pathological found. He does have a history of diverticulosis and has had diverticulitis in the past. In the Emergency Room, his laboratory showed leukocytosis of 13,000 with hemoglobin 6 and hematocrit 35.0. Platelet count was 268,000 and a left leg shift on differential. Chemistries showed a mild hyponatremia at 132 and potassium 3.8. BUN 24, creatinine 1.21. Lactic acid 1.5, calcium 8.3, magnesium 1.6. Liver functions all within normal limits. Troponin less than 0.02 and C-reactive protein was elevated at 2.2. Lipase was normal at 21. Sed rate was elevated at 35. Urinalysis showed a small amount of bilirubin, otherwise within normal limits. He had blood cultures drawn. CT of the chest and abdomen with contrast showed a long segment of infectious and inflammatory colitis involving the colon. CT of the chest showed no intrathoracic abnormalities. On admission his pain was 8/10. He was given morphine for pain control and started on IV fluids and initially given Rocephin and Flagyl. The patient was admitted for infective colitis. He was placed on bowel rest and the Flagyl was continued and the Rocephin was discontinued. Levaquin was started. He was given ulcer prophylaxis with PPI as well as Lovenox for DVT prophylaxis. His magnesium was replaced initially. He was given IV fluids and Dr. Kinsey was consulted. He also had a fairly significant degree of constipation and was given multiple doses of Milk of Magnesia after his diet was advanced. He was also given pain management and antiemetics. He clinically improved daily. In addition to several doses of Milk of Magnesia he was given Dulcolax as well as MiraLAX. He was encouraged to ambulate frequently in the hallways. Last night his diet was changed to a full liquid diet. He tolerated that without any problems. HOSPITAL COURSE: During his hospital stay he did have some erratically elevated blood pressures. He does have a history of that. Prior to the restarting of his home medications he was given some IV Hydralazine to assist with blood pressure control. He has been encouraged to followup with his primary care physician for further workup of his blood pressure issues. He will be discharged home today in stable condition. LABORATORY: Initially his WBCs were 13,300 and they have normalized now to 7,400. He has been slightly anemic but stable with hemoglobin today of 11.2 and hematocrit 33.6. Initially he had a left shift on differential but it has now normalized. His ESR dropped from 35 on the day of admission to 25. Sodium stabilized today, yesterday it was 138. Magnesium came up to 2.3. His other electrolytes were basically within normal limits. Creatinine improved yesterday at 0.99. C reactive protein initially was 2.2 and 2 days ago it was 11.4. Stool for occult blood was negative. Preliminary blood cultures showed no growth after 3 days. Clostridium Difficile was performed on his stool and it was negative for the antigen and the toxin. Stool leukocytes were positive for elevated WBCs. Stool cultures are pending. RADIOLOGY: Reports shows the last abdominal x-ray showed an improving caliber of dilated small bowel loops suggesting of improving small bowel ileus with residual few air-fluid levels seen. DISCHARGE PLAN: The patient will be discharged home in stable condition. He is to start a mechanical soft diet. He was given a dose of Milk of Magnesia prior to his discharge and is to continue on MiraLAX daily. He will have Flagyl and Levaquin for 14 additional days and he is to followup with Dr. Kinsey after discharge and prior to going back to [place] to his home. He is also recommended to followup with his primary care physician in [place] for his blood pressure issues. DISCHARGE MEDICATIONS: 1. Clonidine patch. 2. Probiotic. 3. [place]-3 fatty acids. 4. Vitamin D3. 5. Acyclovir. 6. Multivitamin. 7. Zolpidem. 8. Atorvastatin. 9. Pantoprazole. 10. Aspirin. 11. Hydrochlorothiazide. 12. Losartan. 13. Hydralazine. 14. Levaquin. 15. Metronidazole. 16. MiraLAX. #[id number] [facility]
== END 2018-02-08 13:12 | disposition home or self-care (01) | DRG 392 ==
LOC: ER 21:07 → MS 02-05 00:43 → UNDOADMOB 02-05 00:43 → MS 02-05 02:00 → OBSVTOIN 02-05 02:00
PROVIDERS: ADMIT Nurse Practitioner Family; ATTEND Nurse Practitioner Acute Care
PROC: BW2 Imaging, Anatomical Regions, Computerized Tomography (CT Scan) (ICD-10-PCS; principal; 2018-02-04)
DX: K57.32 Diverticulitis of large intestine without perforation or abscess without bleeding (principal); E87.1 Hypo-osmolality and hyponatremia; A09 Infectious gastroenteritis and colitis, unspecified; K56.7 Ileus, unspecified; K56.609 Unspecified intestinal obstruction, unspecified as to partial versus complete obstruction; I10 Essential (primary) hypertension; E83.42 Hypomagnesemia; D64.9 Anemia, unspecified; K59.00 Constipation, unspecified; E86.0 Dehydration; T50.2X5A Adverse effect of carbonic-anhydrase inhibitors, benzothiadiazides and other diuretics, initial encounter; Y92.009 Unspecified place in unspecified non-institutional (private) residence as the place of occurrence of the external cause; Z85.46 Personal history of malignant neoplasm of prostate; Z87.891 Personal history of nicotine dependence; Z79.82 Long term (current) use of aspirin; Z79.899 Other long term (current) drug therapy